=== PATIENT | female | born 1985 | race Caucasian/White ===

== ENCOUNTER 2019-08-17 20:27 | Emergency (ER) | payer OTHER ==
[2019-08-17 20:45] VITALS: BP 155/100; PULSE 101; RESP 20; TEMP 98.7
[2019-08-17] MEDS ORDERED: IBUPROFEN 600 MG TAB PO STA (21:25)
--- NOTE | 2019-08-17 21:26 | ED ---
General Adult HPI - General Chief complaint: ENT Stated complaint: FB in R Ear Time Seen by Provider: 08/17/19 20:50 Source: patient Mode of arrival: ambulatory Limitations: no limitations - History of Present Illness Initial comments: 34-year-old female patient presents to the emergency department today for evaluation of possible bug in her right ear. Patient states she was in the car when she felt a bug fly into her ear. States she heard a buzzing and moving around. States been the sensation stopped that she has some discomfort to the ear. She believes that the bug has and is still stuck. She denies any drainage from the ear. Denies any pain. Denies any other concerns. - Related Data Previous Rx's Medication Instructions Recorded Levofloxacin [Levaquin] 750 mg PO DAILY #3 tab 05/19/15 Oseltamivir [Tamiflu] 75 mg PO Q12HR #5 cap 05/19/15 Allergies Allergy/AdvReac Type Severity Reaction Status Date / Time No Known Allergies Allergy Verified 08/17/19 20:45 Review of Systems ROS Statement: Those systems with pertinent positive or pertinent negative responses have been documented in the HPI. ROS Other: All systems not noted in ROS Statement are negative. Past Medical History Additional Past Medical History / Comment(s): 05/17/[address] [facility] ER with dizziness/lightheaded, nausea and vomited x 1. She also has rhinorrhea, pharyngitis and otitis as well as coughing green phlegm. She is admitted with clinical impression of influenza, UTI, fever and +D-dimer. Other HX: two uterus History of Any Multi-Drug Resistant Organisms: None Reported Past Surgical History: Section Additional Past Surgical History / Comment(s): x 1. Past Anesthesia/Blood Transfusion Reactions: Unable to Obtain Additional Past Anesthesia/Blood Transfusion Reaction / Comment(s): Pt has never had general or spinal anesthesia. Pt has never received blood. Past Psychological History: Depression Smoking Status: Never smoker Past Alcohol Use History: None Reported Past Drug Use History: None Reported - Past Family History Father Family Medical History: Unable to Obtain Additional Family Medical History / Comment(s): Pt does not know her father's history. Mother Family Medical History: Musculoskeletal Disorder, Neurologic Disorder Additional Family Medical History / Comment(s): Multiple sclerosis. She is 45 yrs old. General Exam Limitations: no limitations General appearance: alert, in no apparent distress, other (Physical well- developed, well-nourished adult female patient in no acute distress. Vital signs upon presentation are temperature 98.7F, pulse 101, respirations 20, blood pressure 155/100, pulse ox 99% on room air.) ENT exam: Present: mucous membranes moist, TM's normal bilaterally, normal external ear exam, other (No evidence of foreign body to the right ear.). Absent: normal exam Respiratory exam: Present: normal lung sounds bilaterally. Absent: respiratory distress, wheezes, rales, rhonchi, stridor Cardiovascular Exam: Present: regular rate, normal rhythm, normal heart sounds. Absent: systolic murmur, diastolic murmur, rubs, gallop, clicks Neurological exam: Present: alert, oriented X3, CN II-XII intact Psychiatric exam: Present: normal affect, normal mood Skin exam: Present: warm, dry, intact, normal color. Absent: rash Course Vital Signs 08/17/19 20:41 Temperature 98.7 F Pulse Rate 101 H Respiratory 20 Rate Blood Pressure 155/100 O2 Sat by Pulse 99 Oximetry Medical Decision Making - Medical Decision Making 34-year-old female patient presents to the emergency department today for evaluation of possible bug in the right ear. Physical examination is unremarkable. There is no evidence for focal or foreign body to the right ear canal. I did have an additional provider, and and take another look and they agree that the canal is free of foreign body as well. I give patient ibuprofen for pain control. To be discharged. The primary care physician for recheck in 1-2 days. Return parameters were discussed in detail. She verbalizes understanding and agrees with this plan. Disposition Clinical Impression: Feared condition not demonstrated Disposition: HOME SELF-CARE Condition: Good Instructions (If sedation given, give patient instructions): Ear Foreign Body (ED) Additional Instructions: Take motrin for pain relief. Follow up with your primary care physician for recheck in 1-2 days. Return to the emergency department immediately for any new, worsening, or concerning symptoms. Is patient prescribed a controlled substance at d/c from ED?: No Referrals: None,Stated [Primary Care Provider] - 1-2 days Time of Disposition: 21:26
== END 2019-08-17 21:33 | disposition home or self-care (01) ==
LOC: EC 20:27
DX: Z71.1 Person with feared health complaint in whom no diagnosis is made (principal)
CPT/HCPCS: 99282

== ENCOUNTER 2021-01-23 12:47 | Emergency (ER) | payer OTHER ==
[2021-01-23 14:55] VITALS: TEMP 98.4
--- NOTE | 2021-01-23 15:35 | XR ---
EXAMINATION TYPE: XR wrist complete LT DATE OF EXAM: 01/23/2021 CLINICAL HISTORY: pain TECHNIQUE: Frontal, lateral and oblique images of the left wrist are obtained. COMPARISON: None. FINDINGS: There is no acute fracture/dislocation evident. The joint spaces appear within normal bolaños its. The overlying soft tissue appears unremarkable. IMPRESSION: There is no acute fracture or dislocation seen. ICD 10 NO FRACTURE, INITIAL EVALUATION
--- NOTE | 2021-01-23 18:53 | ED ---
Animal Bite HPI - General Chief Complaint: Animal Bite Stated Complaint: Dog bite, wrist injury Time Seen by Provider: 01/23/21 17:51 Source: patient, RN notes reviewed Mode of arrival: wheelchair Limitations: no limitations - History of Present Illness Initial Comments: Patient is a 35-year-old female that presents to the emergency department complaining of left wrist pain. Patient notes she got bit by the family dog. Patient notes she is having left wrist pain. She came in for an x-ray to give a with for any possible fractures. She does have several abrasions to left wrist. Otherwise she was well-appearing in no apparent distress or pain. She denied chest pain first breath headache nausea vomiting diarrhea constipation fever fatigue chills. - Related Data Previous Rx's Medication Instructions Recorded Amoxicillin/Potassium Clav 1 tab PO Q12HR #20 tab 01/23/21 [Augmentin 875-125 Tablet] Allergies Allergy/AdvReac Type Severity Reaction Status Date / Time No Known Allergies Allergy Verified 01/23/21 18:17 Review of Systems ROS Statement: Those systems with pertinent positive or pertinent negative responses have been documented in the HPI. ROS Other: All systems not noted in ROS Statement are negative. Past Medical History Additional Past Medical History / Comment(s): 05/17/15 Pt presented to [facility] ER with dizziness/lightheaded, nausea and vomited x 1. She also has rhinorrhea, pharyngitis and otitis as well as coughing green phlegm. She is admitted with clinical impression of influenza, UTI, fever and +D-dimer. Other HX: two uterus History of Any Multi-Drug Resistant Organisms: None Reported Past Surgical History: Section Additional Past Surgical History / Comment(s): x 1. Past Anesthesia/Blood Transfusion Reactions: Unable to Obtain Additional Past Anesthesia/Blood Transfusion Reaction / Comment(s): Pt has never had general or spinal anesthesia. Pt has never received blood. Past Psychological History: Depression Smoking Status: Never smoker Past Alcohol Use History: None Reported Past Drug Use History: None Reported - Past Family History Father Family Medical History: Unable to Obtain Additional Family Medical History / Comment(s): Pt does not know her father's history. Mother Family Medical History: Musculoskeletal Disorder, Neurologic Disorder Additional Family Medical History / Comment(s): Multiple sclerosis. She is 45 y rs old. General Exam Limitations: no limitations General appearance: alert, in no apparent distress Head exam: Present: atraumatic, normocephalic, normal inspection Eye exam: Present: normal appearance, PERRL, EOMI. Absent: scleral icterus, conjunctival injection, periorbital swelling ENT exam: Present: normal exam, mucous membranes moist Neck exam: Present: normal inspection Respiratory exam: Present: normal lung sounds bilaterally. Absent: respiratory distress, wheezes, rales, rhonchi, stridor Cardiovascular Exam: Present: regular rate, normal rhythm, normal heart sounds. Absent: systolic murmur, diastolic murmur, rubs, gallop, clicks Extremities exam: Present: normal inspection, full ROM, normal capillary refill. Absent: tenderness, pedal edema, joint swelling, calf tenderness Neurological exam: Present: alert, oriented X3 Psychiatric exam: Present: normal affect, normal mood Skin exam: Present: warm, dry, intact, normal color, abrasion (Verbal abrasions to left wrist consistent with dog bite.). Absent: rash Course Vital Signs 01/23/21 14:51 Temperature 98.4 F Pulse Rate 98 Respiratory 16 Rate Blood Pressure 150/82 O2 Sat by Pulse 100 Oximetry Medical Decision Making - Medical Decision Making 35-year-old female complaining of dog bite left wrist. X-ray left wrist. Patient notes she is up-to-date on her tetanus that he. X-ray negative for any acute C7 body. Antibiotics sent to pharmacy. Case discussed with Dr. Cazares, patient discharge home. - Radiology Data Radiology results: report reviewed, image reviewed X-ray left wrist: Negative left wrist exam. Disposition Clinical Impression: Dog bite Disposition: HOME SELF-CARE Condition: Stable Instructions (If sedation given, give patient instructions): Animal Bite (ED) Additional Instructions: Please return to the Emergency Department if symptoms worsen or any other concerns. Follow-up with primary care 1-2 days. Take antibiotics as prescribed. Take Tylenol Motrin as needed for pain. Prescriptions: Amoxicillin/Potassium Clav [Augmentin 875-125 Tablet] 1 tab PO Q12HR #20 tab Is patient prescribed a controlled substance at d/c from ED?: No Referrals: Xochitl Cazares DO [Primary Care Provider] - 1-2 days Time of Disposition: 18:53
[2021-01-23 19:09] VITALS: BP 140/78; PULSE 78; RESP 20
== END 2021-01-23 19:08 | disposition home or self-care (01) ==
LOC: EC 12:47
DX: S61.552A Open bite of left wrist, initial encounter (principal); W54.0XXA Bitten by dog, initial encounter
CPT/HCPCS: 99283

== ENCOUNTER 2022-02-12 11:08 | Emergency (ER) | payer OTHER ==
[2022-02-12 11:21] VITALS: TEMP 96.9
[2022-02-12] MEDS ORDERED: SODIUM CHLORIDE 0.9% 1,000 ML IV ONE (11:30)
--- NOTE | 2022-02-12 11:33 | ED ---
General Adult HPI - General Chief complaint: Urogenital Stated complaint: Kidney infection, chest pain Time Seen by Provider: 02/12/22 11:23 Source: patient, RN notes reviewed Mode of arrival: ambulatory Limitations: no limitations - History of Present Illness Initial comments: 36-year-old female with no significant past medical history pending to the emergency department today for dysuria. Patient notes her symptoms started on 02/06/2022. She was given bactrim on Thursday 02/08. She did not finish the antibiotics because they aggravated her stomach. Today she notes worsening symptoms of right flank pain, dysuria, and increased urgency. She also complains of accompanying symptoms of increased fatigue, chills, nausea, vomiting, sore throat. She denies any recent sick contacts. - Related Data Home Medications Medication Instructions Recorded Confirmed FLUoxetine HCL [PROzac] 10 mg PO DAILY@1800 02/12/22 02/12/22 Previous Rx's Medication Instructions Recorded Cephalexin [Keflex] 500 mg PO TID 7 Days #21 cap 02/12/22 Allergies Allergy/AdvReac Type Severity Reaction Status Date / Time No Known Allergies Allergy Verified 02/12/22 12:28 Review of Systems ROS Statement: Those systems with pertinent positive or pertinent negative responses have been documented in the HPI. ROS Other: All systems not noted in ROS Statement are negative. Past Medical History Past Medical History: Skin Disorder Additional Past Medical History / Comment(s): Pt tested covid + at [facility] on 02/20/21, pt told she had a murmur when she was a teenager, born with 2 uteruses, UTI. History of Any Multi-Drug Resistant Organisms: None Reported Past Surgical History: Section Additional Past Surgical History / Comment(s): x 1. Past Anesthesia/Blood Transfusion Reactions: No Reported Reaction Additional Past Anesthesia/Blood Transfusion Reaction / Comment(s): Pt has never had general or spinal anesthesia. Pt has never received blood. Past Psychological History: Anxiety, Depression Smoking Status: Never smoker - Past Family History Father Family Medical History: Unable to Obtain Additional Family Medical History / Comment(s): Pt does not know her father's history. Mother Family Medical History: Musculoskeletal Disorder, Neurologic Disorder Additional Family Medical History / Comment(s): Multiple sclerosis. Mother is living. General Exam Limitations: no limitations General appearance: alert, in no apparent distress Head exam: Present: atraumatic, normocephalic, normal inspection Eye exam: Present: normal appearance, PERRL, EOMI. Absent: scleral icterus, conjunctival injection, periorbital swelling ENT exam: Present: normal exam, mucous membranes moist Neck exam: Present: normal inspection. Absent: tenderness, meningismus, lymphadenopathy Respiratory exam: Present: normal lung sounds bilaterally. Absent: respiratory distress, wheezes, rales, rhonchi, stridor Cardiovascular Exam: Present: regular rate, normal rhythm, normal heart sounds. Absent: systolic murmur, diastolic murmur, rubs, gallop, clicks GI/Abdominal exam: Present: soft, normal bowel sounds. Absent: distended, tenderness, guarding, rebound, rigid Extremities exam: Present: normal inspection, full ROM, normal capillary refill. Absent: tenderness, pedal edema, joint swelling, calf tenderness Back exam: Present: normal inspection, CVA tenderness (R) (Mild) Neurological exam: Present: alert, oriented X3, CN II-XII intact Psychiatric exam: Present: normal affect, normal mood Skin exam: Present: warm, dry, intact, normal color. Absent: rash Course Vital Signs 02/12/22 02/12/22 11:19 15:48 Temperature 96.9 F L Pulse Rate 97 63 Respiratory 16 18 Rate Blood Pressure 130/81 128/77 O2 Sat by Pulse 96 97 Oximetry - Reevaluation(s) Reevaluation #1: 02/12/22 13:58 Patient reevaluated. Discussed results of UA with patient. Patient reports she has a known history of kidney stones and that her doctor requested she has imaging performed to r/out nephrolithiasis. Medical Decision Making - Medical Decision Making 36-year-old female presenting to the emergency department for dysuria. She was seen and evaluated in the emergency department. Physical exam essentially unremarkable. Lab work patient had lab work and imaging ordered. I interpreted the following:WBC 8.8, HGB 11.6, CMP unremarkable, UA remarkable for 1+ protien, trace blood, large LE, > 182 WBC's, with bacteria, Urine culture pending. CT abdomen negative for any acute abdominal process. I discussed the results in detail with the patient. Patient verbalized understanding, and is agreeable for plan for discharge. Patient had a prescription for Keflex. Patient encouraged to follow up with primary care as needed. Case discussed with Dr. Shaw. who agrees with The plan for discharge - Lab Data Result diagrams: 02/12/22 12:12 02/12/22 12:12 Lab Results 02/12/22 02/12/22 02/12/22 Range/Units 12:12 12:12 12:12 WBC 8.8 (3.8-10.6) k/uL RBC 5.20 (3.80-5.40) m/uL Hgb 11.6 (11.4-16.0) gm/dL Hct 36.4 (34.0-46.0) % MCV 69.9 L (80.0-100.0) fL MCH 22.4 L (25.0-35.0) pg MCHC 32.0 (31.0-37.0) g/dL RDW 17.0 H (11.5-15.5) % Plt Count 287 (150-450) k/uL MPV 7.1 Neutrophils % 72 % Lymphocytes % 13 % Monocytes % 9 % Eosinophils % 1 % Basophils % 0 % Neutrophils # 6.4 (1.3-7.7) k/uL Lymphocytes # 1.2 (1.0-4.8) k/uL Monocytes # 0.8 (0-1.0) k/uL Eosinophils # 0.1 (0-0.7) k/uL Basophils # 0.0 (0-0.2) k/uL Hypochromasia Marked Anisocytosis Slight Microcytosis Marked Sodium (137-145) mmol/L Potassium (3.5-5.1) mmol/L Chloride (98-107) mmol/L Carbon Dioxide (22-30) mmol/L Anion Gap mmol/L BUN (7-17) mg/dL Creatinine (0.52-1.04) mg/dL Est GFR (CKD-EPI)AfAm (>60 ml/min/1.73 sqM) Est GFR (CKD-EPI)NonAf (>60 ml/min/1.73 sqM) Glucose (74-99) mg/dL Calcium (8.4-10.2) mg/dL Total Bilirubin (0.2-1.3) mg/dL AST (14-36) U/L ALT (4-34) U/L Alkaline Phosphatase (38-126) U/L Total Protein (6.3-8.2) g/dL Albumin (3.5-5.0) g/dL Urine Color Yellow Urine Appearance Cloudy H (Clear) Urine pH 5.5 (5.0-8.0) Ur Specific Lily 1.017 (1.001-1.035) Urine Protein 1+ H (Negative) Urine Glucose (UA) Negative (Negative) Urine Ketones Negative (Negative) Urine Blood Trace H (Negative) Urine Nitrite Negative (Negative) Urine Bilirubin Negative (Negative) Urine Urobilinogen <2.0 (<2.0) mg/dL Ur Leukocyte Esterase Large H (Negative) Urine RBC 11 H (0-5) /hpf Urine WBC >182 H (0-5) /hpf Ur Squamous Epith Cells 6 H (0-4) /hpf Urine Bacteria Rare H (None) /hpf Urine Mucus Occasional H (None) /hpf Urine HCG, Qual Not Detected (Not Detectd) Influenza Type A (PCR) (Not Detectd) Influenza Type B (PCR) (Not Detectd) RSV (PCR) (Not Detectd) SARS-CoV-2 (PCR) (Not Detectd) 02/12/22 02/12/22 Range/Units 12:12 12:12 WBC (3.8-10.6) k/uL RBC (3.80-5.40) m/uL Hgb (11.4-16.0) gm/dL Hct (34.0-46.0) % MCV (80.0-100.0) fL MCH (25.0-35.0) pg MCHC (31.0-37.0) g/dL RDW (11.5-15.5) % Plt Count (150-450) k/uL MPV Neutrophils % % Lymphocytes % % Monocytes % % Eosinophils % % Basophils % % Neutrophils # (1.3-7.7) k/uL Lymphocytes # (1.0-4.8) k/uL Monocytes # (0-1.0) k/uL Eosinophils # (0-0.7) k/uL Basophils # (0-0.2) k/uL Hypochromasia Anisocytosis Microcytosis Sodium 137 (137-145) mmol/L Potassium 3.9 (3.5-5.1) mmol/L Chloride 104 (98-107) mmol/L Carbon Dioxide 25 (22-30) mmol/L Anion Gap 8 mmol/L BUN 11 (7-17) mg/dL Creatinine 1.14 H (0.52-1.04) mg/dL Est GFR (CKD-EPI)AfAm 73 (>60 ml/min/1.73 sqM) Est GFR (CKD-EPI)NonAf 63 (>60 ml/min/1.73 sqM) Glucose 102 H (74-99) mg/dL Calcium 8.6 (8.4-10.2) mg/dL Total Bilirubin 0.9 (0.2-1.3) mg/dL AST 21 (14-36) U/L ALT 22 (4-34) U/L Alkaline Phosphatase 78 (38-126) U/L Total Protein 7.0 (6.3-8.2) g/dL Albumin 4.0 (3.5-5.0) g/dL Urine Color Urine Appearance (Clear) Urine pH (5.0-8.0) Ur Specific Lily (1.001-1.035) Urine Protein (Negative) Urine Glucose (UA) (Negative) Urine Ketones (Negative) Urine Blood (Negative) Urine Nitrite (Negative) Urine Bilirubin (Negative) Urine Urobilinogen (<2.0) mg/dL Ur Leukocyte Esterase (Negative) Urine RBC (0-5) /hpf Urine WBC (0-5) /hpf Ur Squamous Epith Cells (0-4) /hpf Urine Bacteria (None) /hpf Urine Mucus (None) /hpf Urine HCG, Qual (Not Detectd) Influenza Type A (PCR) Not Detected (Not Detectd) Influenza Type B (PCR) Not Detected (Not Detectd) RSV (PCR) Not Detected (Not Detectd) SARS-CoV-2 (PCR) Not Detected (Not Detectd) Disposition Clinical Impression: UTI (urinary tract infection) Disposition: HOME SELF-CARE Condition: Stable Instructions (If sedation given, give patient instructions): Urinary Tract Infection in Women (ED) Additional Instructions: Please return to the nearest emergency department if fever, chills, worsening pain Prescriptions: Cephalexin [Keflex] 500 mg PO TID 7 Days #21 cap Is patient prescribed a controlled substance at d/c from ED?: No Referrals: Xochitl Cazares DO [Primary Care Provider] - 1-2 days Time of Disposition: 13:51
[2022-02-12 12:32] LABS: Anisocytosis Slight; Basophils % (A) 0 %; Eosinophils # (A) 0.1 k/uL (0-0.7); Eosinophils % (A) 1 %; HCT 36.4 % (34.0-46.0); HGB 11.6 gm/dL (11.4-16.0); Hypochromasia Marked; Lymphocytes # (A) 1.2 k/uL (1.0-4.8); Lymphocytes % (A) 13 %; MCH 22.4 pg (25.0-35.0); MCV 69.9 fL (80.0-100.0); Mean Platelet Volume 7.1; Microcytosis Marked; Monocytes # (A) 0.8 k/uL (0-1.0); Monocytes % (A) 9 %; Neutrophils # (A) 6.4 k/uL (1.3-7.7); Neutrophils % (A) 72 %; Platelet Count 287 k/uL (150-450); WBC 8.8 k/uL (3.8-10.6)
[2022-02-12 12:37] LABS: Appearance,Urine Cloudy (Clear); Bacteria,Urine Rare /hpf; Bilirubin,Urine Negative (Negative); Blood,Urine Trace (Negative); Color,Urine Yellow; Glucose,Urine (UA) Negative (Negative); Ketones,Urine Negative (Negative); Leukocyte Esterase,Urine Large (Negative); Mucus,Urine Occasional /hpf; Nitrite,Urine Negative (Negative); PH, Urine 5.5 (5.0-8.0); Protein,Urine 1+ (Negative); RBC,Urine 11 /hpf (0-5); Specific Gravity,Urine 1.017 (1.001-1.035); Squamous Epithelial Cell,Urine 6 /hpf (0-4); Urobilinogen,Urine <2.0 mg/dL (<2.0); WBC,Urine >182 /hpf (0-5)
[2022-02-12 12:44] LABS: Calcium 8.6 mg/dL (8.4-10.2); Potassium 3.9 mmol/L (3.5-5.1); Total Bilirubin 0.9 mg/dL (0.2-1.3)
[2022-02-12] MEDS ORDERED: cefTRIAXone IN SWFI 1,000 MG/10 ML SYRINGE IVP STA (13:46)
--- NOTE | 2022-02-12 15:13 | CT ---
EXAMINATION TYPE: CT abdomen pelvis wo con DATE OF EXAM: 02/12/2022 COMPARISON: None INDICATION: Right sided flank pain. DLP: 2012.9 mGycm, Automated exposure control for dose reduction was used. CONTRAST: 0 mL of Isovue 300. Study performed without Oral Contrast TECHNIQUE: Axial images were obtained from above the diaphragm to the pubic rami in the axial plane a t 5 mm thick sections. Reconstructed images are reviewed on the computer in the coronal plane. FINDINGS: Limited CT sections are obtained the lung bases. The lung bases are clear. CT ABDOMEN: Liver: Normal Spleen: Normal Pancreas: Normal Adrenal glands: The adrenal glands are normal. Gallbladder: Normal Kidneys: No masses are evident. No hydronephrosis is present. No cysts are present. No renal stone s are evident. Aorta: Normal Inferior vena cava: Normal. CT PELVIS: Loops of bowel within the abdomen and pelvis are normal. The study is lateral contrast limiting b owel evaluation. Appendix: No suspicious inflammatory changes evident. No dilated tubular structure. Urinary bladder: Normal. Genitourinary structures: There is a 1.6 cm right ovarian cyst. Uterus appears unremarkable. Left ova ry has a few follicles. Osseous structures: No suspicious lytic or sclerotic lesions are evident. Some degenerative changes i n the lower lumbar spine facets. IMPRESSIONS: 1. 1.6 cm right ovarian cyst in the retrocecal hemipelvis.
[2022-02-12 15:50] VITALS: BP 128/77; PULSE 63; RESP 18
== END 2022-02-12 15:49 | disposition home or self-care (01) ==
LOC: EC 11:08
DX: N39.0 Urinary tract infection, site not specified (principal); F41.9 Anxiety disorder, unspecified; F32.A Depression, unspecified; Z20.822 Contact with and (suspected) exposure to COVID-19
CPT/HCPCS: 36415; 80053; 85025; 81001; 81025; 87086; 87636; 74176; 99285; 96374; 96361; J0696

== ENCOUNTER → 2023-06-06 | Outpatient (CLI) | payer OTHER ==
[2023-06-06 11:53] LABS: HCT 49.5 % (34.0-46.0); HGB 15.5 gm/dL (11.4-16.0); Hypochromasia Slight; MCH 26.6 pg (25.0-35.0); MCHC 31.3 g/dL (31.0-37.0); Mean Platelet Volume 7.5; Platelet Count 331 k/uL (150-450); RBC 5.82 m/uL (3.80-5.40); RDW 15.5 % (11.5-15.5); WBC 9.6 k/uL (3.8-10.6)
[2023-06-06 16:07] LABS: ALT 19 U/L (8-44); AST 18 U/L (13-35); Albumin 4.6 g/dL (3.8-4.9); Albumin/Globulin Ratio 1.31 Ratio (1.60-3.17); Alkaline Phosphatase 89 U/L (41-126); BUN/Creat Ratio 20.25 Ratio (12.00-20.00); Blood Urea Nitrogen 16.2 mg/dL (9.0-27.0); Calcium 9.5 mg/dL (8.7-10.3); Carbon Dioxide 23.7 mmol/L (21.6-31.8); Chloride 102 mmol/L (96-109); Chol/HDL Ratio 2.93 Ratio; Globulin 3.5 g/dL (1.6-3.3); Glucose 89 mg/dL (70-110); LDL Cholesterol,Calculated 61.9 mg/dL (0.0-131.0); Potassium 4.8 mmol/L (3.5-5.5); Sodium 138 mmol/L (135-145); Total Bilirubin 0.6 mg/dL (0.3-1.2); Total Protein 8.1 g/dL (6.2-8.2)
== END | disposition home or self-care (01) ==
LOC: LABWHC1 10:34
PROVIDERS: ATTEND Physician Assistant
DX: E66.01 Morbid (severe) obesity due to excess calories (principal); I10 Essential (primary) hypertension; R11.0 Nausea
CPT/HCPCS: 36415; 80053; 80061; 83036; 84443; 85027